=== PATIENT | female | born 1935 | race Caucasian/White ===

== ENCOUNTER → 2017-02-11 | Outpatient (CLI) | payer OTHER ==
[~2017-02-11] MED LIST: ARTH650T6 PO; ASPI-146 PO; CELE200C PO; COMMODE 3-IN-11 MIS; DOCU1CAP39 PO; ENOX40IN SQ; EZET10 PO; LEVO.1 PO; LORTA5 PO; NORC5TAB PO; OMEGCAP PO; SYNT88TA PO; TARTCAP PO; VITA100T10; WALKER WHEELS/F1 MIS; Z.0.WALKERFRONT
--- NOTE | 2017-02-11 11:52 | RADRPT ---
EXAM DATE/TIME: 02/11/2017 11:26 [facility] COMPARISON: No previous studies available for comparison. INDICATIONS : Evaluate for pneumonia, pneumothorax or communicable disease. Pre op for right hip [id number] MEDICAL HISTORY : None. SURGICAL HISTORY : None. ENCOUNTER: Initial ACUITY: 1 day PAIN SCORE: 0/10 LOCATION: Bilateral chest FINDINGS: PA and lateral views of the chest demonstrate the lungs to be symmetrically aerated without evidence of mass, infiltrate or effusion. The cardiomediastinal contours are unremarkable. Osseous structure s are intact. CONCLUSION: No acute disease. Sunny Daniels MD on February 11, 2017 at 11:50 Board Certified Radiologist. This report was verified electronically.
--- NOTE | 2017-02-12 13:35 | EKG ---
Date Performed: 02/11/2017 Time Performed: 10:05:14 PTAGE: 81 years EKG: Sinus bradycardia. Poor R wave progression - probable normal variant Septal T wave changes are nonspecific Low QRS voltages in precordial leads Borderline ECG Compared to PREVIOUS TRACING , septal T-wave changes are new. PREVIOUS TRACIN09/27/2014 19.45 DOCTOR: Giovanni Clifford Interpretating Date/Time 02/12/2017 13:20:18
== END ==
LOC: CPRE 09:32
PROVIDERS: ATTEND Orthopaedic Surgery
DX: Z01.810 Encounter for preprocedural cardiovascular examination (principal); Z01.811 Encounter for preprocedural respiratory examination; M16.11 Unilateral primary osteoarthritis, right hip; R94.31 Abnormal electrocardiogram [ECG] [EKG]
CPT/HCPCS: 71020; 93005

== ENCOUNTER 2017-02-27 06:44 | Inpatient (IN) | payer OTHER, MEDICARE ==
[~2017-02-27] VITALS: Ht 160 cm; Wt 56.5 kg
[~2017-02-27 06:44] MED LIST changes: -ASPI-146 PO; -COMMODE 3-IN-11 MIS; -DOCU1CAP39 PO; -ENOX40IN SQ; -LEVO.1 PO; -LORTA5 PO; -NORC5TAB PO; -Z.0.WALKERFRONT
[2017-02-27] MEDS ORDERED: POVIDONE IODINE 7.5% SCRUB 118 ML BOTTLE TOPICAL SCH (07:15)
[2017-02-27] MEDS ORDERED: LACTATED RINGER'S 1000 ML IV PRN (07:15)
[2017-02-27] MEDS ORDERED: VANCOMYCIN 1000 MG/NS 250 ML (for <70 kg) IV SCH ×2 (07:15)
[2017-02-27] MEDS ORDERED: METOPROLOL TARTRATE 25 MG TAB PO PRN (07:15)
[2017-02-27] MEDS ORDERED: SODIUM CHLORID 0.9% 500 ML IV PRN (07:15)
[2017-02-27] MEDS ORDERED: CHLORHEXIDINE GLUCONATE 2 % 1 PACK (2 CLOTHS) TOPICAL PRN (07:15)
[2017-02-27] MEDS ORDERED: SODIUM CHLORIDE 0.9% IV SCH ×2 (07:15→13:00)
[2017-02-27] MEDS ORDERED: ceFAZolin 2 GM PREMIX 50 ML IV SCH (07:15)
[2017-02-27] MEDS ORDERED: TRANEXAMIC ACID IV SCH ×2 (07:15→13:00)
[2017-02-27] MEDS ORDERED: EXPAREL PERI-ARTICULAR INJECTION (TOTAL VOL. 60 ML) P-ARTICULR SCH ×2 (07:15)
[2017-02-27] MEDS ORDERED: POVIDONE IODINE 5% (ANTISEPSIS KIT) 4 APPLICATIONS EACH NARE PRN (07:15)
[2017-02-27] MEDS ORDERED: GENTAMICIN SULFATE 80 MG/2 ML VIAL ONE (08:46)
[2017-02-27] MEDS ORDERED: DEXAMETHASONE SOD PHOS 20 MG/5 ML VIAL IV PRN (09:00)
[2017-02-27] MEDS ORDERED: ACETAMINOPHEN 1000 MG/100 ML 100 ML IV ONE (09:29)
--- NOTE | 2017-02-27 11:28 | PD.OP ---
cc: Willis Waters MD Operative Report Date of Surgery: Feb 27, 2017 Preoperative Diagnosis: Right hip severe osteoarthritis Postoperative Diagnosis: Same Procedure: Right total hip arthroplasty Anesthesia: Gen. Surgeon: Willis Waters Supervisor Heading(s): BETTY Melgoza The surgical procedure was assisted by my Advanced Registered Nurse Practitioner. My EARLY CHILDHOOD EDUCATION INSTRUCTOR presence was necessary throughout this case for the manipulation and positioning of the surgical extremity. My EARLY CHILDHOOD EDUCATION INSTRUCTOR was assisting me throughout the duration of this procedure. The skill set of an Advance Registered Nurse Practitioner was medically necessary to complete this procedure. During the surgical case, the surgical scrub technician was working at the back table and the Advance Registered Nurse Practitioner was directly assisting me. Operation and Findings: IMPLANT DESCRIPTION: 1. [place] Gription Cup, acetabular size 52. 2. [place] AltrX polyethylene, neutral. 4. [place] femoral stem size 11, no collar, standard offset. 5. Femoral head/neck metal, 36, +1.5. ESTIMATED BLOOD LOSS: 200 cc. JUSTIFICATION FOR PROCEDURE: The patient has end-stage osteoarthritis to the hip. There is an attached conservative measures pathway form in the chart that describes the nonoperative measures that were undertaken prior to consideration of surgical management. The patient understood the risks and benefits of surgical management. See my office notes for further details. PROCEDURE: The patient was brought back to the operative theatre. Adequate anesthesia was obtained. The patient received intravenous vancomycin and Ancef. The patient was carefully placed on the operative table. The lower extremity was prepped and draped in the usual sterile fashion. Fluoroscopic images were obtained. We made a standard anterior incision over the hip. We dissected through the TFL fascia, exposing the anterior capsule. Arthrotomy was performed in a T-shaped fashion. The capsule was tagged with a #2 FiberWire. End-stage arthritis was identified. Osteotomy was performed through the femoral neck exposing the acetabulum. Remnants of the labrum were resected and osteophytes were removed. We sequentially reamed the acetabulum. We trialed the hip and placed the final cup into position. This was done under fluoroscopic guidance to obtain the appropriate inclination and anteversion. A manhole cover was placed into the acetabular component. We decided to secure the cup with a single 50 mm x 6.5 mm screw. This screw had excellent purchase. We then placed the final polyethylene into position and confirmed that it was well seated. Capsular attachments on the calcar and the inner aspect of the greater trochanter were resected. On the proximal aspect of the femur we used a rongeur , box osteotome, canal finder, sequential broaches and lateralizing rasp. We calcar planed the proximal femur. Then thoroughly irrigated the wound. We trialed the hip with the appropriate size stem. We placed the final stem in to position and trialed again. The hip was stable while it was externally rotated 70 degrees when the leg was lowered to the floor. The final head was applied, and final fluoroscopic images were obtained. The wound was thoroughly irrigated again. Interarticular injection of liposomal bupivacaine was given. The capsule was closed with #2 FiberWire and #1 Vicryl. The deep fascia was closed with a #2 Stratafix, followed by 2-0 Vicryl in the skin and Dermabond dressing. Postop plan is to weight-bear as tolerated. DVT prophylaxis will be performed with SCDhumberto, MONTRELL eng, early mobilization, and Lovenox followed by aspirin. Willis Waters MD Feb 27, 2017 11:28
[2017-02-27] MEDS ORDERED: ASPI-146 PO (11:29)
[2017-02-27] MEDS ORDERED: NORC5TAB PO (11:29)
[2017-02-27] MEDS ORDERED: ENOX40IN SQ (11:29)
[2017-02-27] MEDS ORDERED: Post-op Orders (for Pharmacy) XX ONE (11:30)
[2017-02-27] MEDS ORDERED: NALOXONE HCL 0.4 MG/ML AMP IV PUSH PRN (11:30)
[2017-02-27] MEDS ORDERED: ALUMINUM/MAGNESIUM/SIMETH 30 ML CUP PO PRN (11:30)
[2017-02-27] MEDS ORDERED: MAGNESIUM HYDROXIDE SUSP 30 ML CUP PO PRN (11:30)
[2017-02-27] MEDS ORDERED: BISACODYL 10 MG SUPP RECTAL PRN (11:30)
[2017-02-27] MEDS ORDERED: diphenhydrAMINE HCL 50 MG/ML VIAL IV PUSH PRN (11:30)
[2017-02-27] MEDS ORDERED: ACETAMINOPHEN/HYDROcodone 325 MG/5 MG TAB PO PRN (11:30)
[2017-02-27] MEDS ORDERED: NEOSTIGMINE 5 MG/5 ML SYRINGE IV PUSH ONE (12:00)
[2017-02-27] MEDS ORDERED: ROCURONIUM INJ 50 MG/5 ML SYRINGE IV PUSH ONE (12:00)
[2017-02-27] MEDS ORDERED: GLYCOPYRROLATE 1 MG/5 ML SYRINGE IV PUSH ONE (12:00)
[2017-02-27] MEDS ORDERED: KETOROLAC TROMETHAMINE 30 MG/ML (IVP) VIAL IV PUSH ONE (12:00)
[2017-02-27] MEDS ORDERED: ONDANSETRON HCL 4 MG/2 ML VIAL IV ONE (12:00)
[2017-02-27] MEDS ORDERED: PHENYLEPH/NS 1000 MCG/10 ML SYR IV ONE (12:00)
[2017-02-27] MEDS ORDERED: ePHEDrine/NS 25 MG/5 ML SYRINGE IV ONE (12:00)
[2017-02-27] MEDS ORDERED: PROPOFOL 200 MG/20 ML AMP IV ONE (12:00)
[2017-02-27] MEDS ORDERED: LIDOCAINE HCL 1% PF 5 ML SYRINGE OTHER ONE (12:00)
[2017-02-27] MEDS: SODIUM CHLOR 0.9% 1000 ML INJ 1,000 ML IV SCH ×2 (12:00→22:00)
[2017-02-27] MEDS ORDERED: MORPHINE SULFATE 2 MG/ML INJ IV PUSH PRN (12:00)
[2017-02-27] MEDS ORDERED: *morphine SULFATE 10 MG/ML PERIprocedure ONLY ONE ×2 (12:12→12:29)
--- NOTE | 2017-02-27 12:41 | RADRPT ---
EXAM DATE/TIME: 02/27/2017 10:16 [facility] COMPARISON: HIP RIGHT (AP&LAT 2/3VWS) W AP PELVIS, February 27, 2017, 12:13. INDICATIONS : Right total hip arthroplasty. MEDICAL HISTORY : None. SURGICAL HISTORY : None. ENCOUNTER: Initial ACUITY: 1 day PAIN SCORE: Non-responsive. LOCATION: Right hip FINDINGS: 2 fluoroscopic images of the right hip. There is a right hip arthroplasty in place. Arthroplasty comp onents are in anatomic alignment and well-positioned. There are fractures involving the superior and inferior pubic rami on the right. The soft tissues are grossly unremarkable. CONCLUSION: 1. Status post right hip arthroplasty in anatomic alignment. 2. Right-sided pubic rami fractures. Steffen Jauregui MD on February 27, 2017 at 12:38 Board Certified Radiologist. This report was verified electronically.
--- NOTE | 2017-02-27 12:43 | RADRPT ---
EXAM DATE/TIME: 02/27/2017 12:13 [facility] COMPARISON: No previous studies available for comparison. INDICATIONS : Post-op right total hip arthroplasty. MEDICAL HISTORY : None. SURGICAL HISTORY : None. ENCOUNTER: Subsequent ACUITY: 1 day PAIN SCORE: Non-responsive. LOCATION: Right hip FINDINGS: There is a right hip arthroplasty. Arthroplasty components are in anatomic alignment and well-positio lorena. There is slightly comminuted inferior and superior pubic rami fractures on the right. Remaining structures are intact. Immediate postsurgical soft tissue features are noted on the right. CONCLUSION: 1. Status post right hip arthroplasty in anatomic alignment. 2. Superior and inferior right pubic rami fractures. Steffen Jauregui MD on February 27, 2017 at 12:40 Board Certified Radiologist. This report was verified electronically.
[2017-02-27 14:45] VITALS: BP 121/55; PULSE 75; RESP 16; TEMP 96.2; O2SAT 95
--- NOTE | 2017-02-27 16:52 | HHI.DCPOC ---
Discharge Care Plan Diagnosis: (1) Osteoarthritis of right hip (2) AVN (avascular necrosis of bone) (3) Status post total hip replacement, right Your Health Problems Are: Difficulty with ADL Goals to Promote Your Health * To prevent worsening of your condition and complications * To maintain your health at the optimal level Directions to Meet Your Goals Take your medications as prescribed Follow your dietary instruction Follow activity as directed Keep your appointments as scheduled Take your immunizations and boosters as scheduled If your symptoms worsen call your PCP, if no PCP go to Urgent Care Center or Emergency Room Smoking is Dangerous to Your Health. Avoid second hand smoke Call the 24-hour hour crisis hotline for domestic abuse at Jeevan Mckeon Feb 27, 2017 16:51
--- NOTE | 2017-02-27 16:52 | HHI.FF ---
Face to Face Verification Diagnosis: (1) Status post total hip replacement, right (2) Osteoarthritis of right hip (3) AVN (avascular necrosis of bone) Physical Therapy Gait training, Transfer training, bed to chair Hip: Total hip Right LE Weight Bearing: WB as tolerated Right LE Range of Motion: Active ROM Nursing Nursing: Josh kidd Dressing Changes: Do not change dressing Additional Instructions First dressing change will be in the office I have seen patient Nabila Dominguez on 02/27/17. My clinical findings support the need for the requested home health care services because: Limited ability to care for self High risk of falls I certify that my clinical findings support that this patient is homebound because: Post-op weakness Unsteady gait/balance Jeevan Mckeon Feb 27, 2017 16:52
[2017-02-27] MEDS ORDERED: WALKER WHEELS/F1 MIS (16:54)
[2017-02-27] MEDS ORDERED: COMMODE 3-IN-11 MIS (16:54)
[2017-02-27] MEDS: ONDANSETRON HCL 4 MG/2 ML VIAL IVP PRN (17:09)
[2017-02-27 20:17] VITALS: PULSE 67; RESP 17; TEMP 96.9; O2SAT 96
[2017-02-27 20:35] VITALS: BP 97/54; PULSE 67; RESP 17; TEMP 96.9; O2SAT 96
[2017-02-27] MEDS ORDERED: ZOLPIDEM TARTRATE 5 MG TAB PO PRN (21:00)
[2017-02-28] VITALS: BP 104/53; PULSE 64; RESP 17; TEMP 97.2; O2SAT 96
[2017-02-28 04:00] VITALS: BP 116/52; PULSE 70; RESP 17; TEMP 97.5; O2SAT 97
[2017-02-28] MEDS: ONDANSETRON HCL 4 MG/2 ML VIAL IVP PRN (05:10)
[2017-02-28] MEDS: ACETAMINOPHEN/HYDROcodone 325 MG/5 MG TAB PO PRN ×2 (05:10→12:23)
[2017-02-28] MEDS ORDERED: LEVOTHYROXINE SODIUM 88 MCG TAB PO SCH (06:00)
[2017-02-28 06:17] LABS: HEMATOCRIT 28.4 % (35.0-46.0); HEMOGLOBIN 9.6 GM/DL (11.6-15.3); MEAN CELL VOLUME 95.6 FL (80.0-100.0); MEAN CORPUSCULAR HEMOGLOBIN 32.4 PG (27.0-34.0); MEAN CORPUSCULAR HGB CONC 33.9 % (32.0-36.0); MEAN PLATELET VOLUME 8.3 FL (7.0-11.0); PLATELET COUNT 231 TH/MM3 (150-450); RED BLOOD COUNT 2.97 MIL/MM3 (4.00-5.30); RED CELL DISTRIBUTION WIDTH 13.8 % (11.6-17.2); WHITE BLOOD COUNT 9.3 TH/MM3 (4.0-11.0)
[2017-02-28] MEDS ORDERED: DEXAMETHASONE SOD PHOS 20 MG/5 ML VIAL IV ONE (07:45)
[2017-02-28 08:00] VITALS: BP 109/42; PULSE 72; RESP 16; TEMP 97.8; O2SAT 93
[2017-02-28] MEDS ORDERED: EZETIMIBE 10 MG TAB PO SCH (09:00)
[2017-02-28] MEDS ORDERED: ENOXAPARIN SODIUM 40 MG/0.4 ML SYRINGE SQ SCH (11:00)
--- NOTE | 2017-02-28 12:09 | PD.ORT.PN ---
Subjective Post Op Day #: 1 Subjective Remarks Patient is resting comfortably in bed in NAD. Patient reports mild pain to the right hip. Patient states she wants to go home today with home health. Objective Vitals Vital Signs Date Time Temp Pulse Resp B/P (MAP) Pulse Ox O2 Delivery O2 Flow Rate FiO2 02/28/17 08:00 97.8 72 16 109/42 (64) 93 02/28/17 04:00 97.5 70 17 116/52 (73) 97 02/28/17 00:00 97.2 64 17 104/53 (70) 96 02/27/17 20:35 96.9 67 17 97/54 (68) 96 02/27/17 20:17 96.9 67 17 96 02/27/17 14:45 96.2 75 16 121/55 (77) 95 02/27/17 13:45 98.5 60 20 120/57 (78) 98 Nasal Cannula 2 02/27/17 13:00 59 22 125/58 (80) 97 02/27/17 12:45 56 17 129/60 (83) 98 02/27/17 12:30 54 20 127/59 (81) 96 02/27/17 12:15 61 20 145/65 (91) 96 I/O 02/27/17 02/27/17 02/27/17 02/28/17 02/28/17 02/28/17 07:00 15:00 23:00 07:00 15:00 23:00 Intake Total 1850 ml 240 ml 1615 ml Output Total 200 ml Balance 1650 ml 240 ml 1615 ml Intake Oral 240 ml 240 ml IV Total 1850 ml 1375 ml Output Estimated Blood Loss 200 ml # Voids 1 3 # Bowel Movements 0 0 Result Diagram: 02/28/17 0535 Procedures Right SESAR Objective Remarks Dressing is C/D/I. EHL/TA/G intact. 2+ DP pulse. Calf is soft and nontender. + SILT Assessment & Plan Ortho Post Op Day #: 1 Problem List: Assessment and Plan POD #1: Right SESAR 1. WBAT RLE 2. Lovenox followed by ASA for DVT prophylaxis 3. Ice to the right hip PRN 4. Stable per ortho for discharge home with home health today. 5. F/U in the office with Dr. Waters or BETTY Blackwood as previously scheduled. Jeevan Mckeon Feb 28, 2017 12:09
[2017-02-28] MEDS ORDERED: DOCUSATE SODIUM 100 MG CAP PO SCH (21:00)
[2017-02-28] MEDS ORDERED: MULTIVITAMINS/MINERALS THERAPEUTIC TAB PO SCH (21:00)
== END 2017-02-28 15:45 | disposition home health service (06) | DRG 470 ==
LOC: HSDI 06:44 → N06B 13:59
PROVIDERS: ADMIT Orthopaedic Surgery; ATTEND Orthopaedic Surgery
PROC: 0SR902A Replacement of Right Hip Joint with Metal on Polyethylene Synthetic Substitute, Uncemented, Open Approach (ICD-10-PCS; principal; 2017-02-27 09:38)
DX: M16.11 Unilateral primary osteoarthritis, right hip (principal); E03.9 Hypothyroidism, unspecified; E78.5 Hyperlipidemia, unspecified
CPT/HCPCS: 73502; 76000; 85027; 86850; 86900; 86901; 94150; C1776; C9290; J0131; J0690; J1100; J1580; J1650; J1885; J2270; J2370; J2405; J2710; J3370; J7030; J7050; J7120